=== PATIENT | female | born 1965 | race Caucasian/White ===

== ENCOUNTER → 2016-11-06 | Outpatient (CLI) | payer OTHER ==
--- NOTE | 2016-11-06 11:40 | MA ---
Screening Digital Mammogram Clinical Indications: Routine screening. Technique: Standard cephalocaudal and mediolateral oblique projections are obtained without and with (Aicha views) implant displacement. This examination was processed by the [employer] computer-aided detec tion system. Comparison: Mammograms through July 04, 2007. Breast density: Type C: The breast tissue is heterogeneously dense, which may obscure small masses. Findings: CAD was reviewed. There is a focal asymmetry in the upper outer left breast, best seen on t he MLO implant displaced view. No suspicious calcifications, masses, or areas of architectural distor tion are identified in the right breast. Right axillary asymmetry is stable to decreased in conspicui ty, likely related to overlapping fibroglandular tissue. Subpectoral saline implants have stable cont our. Heterogeneously dense breast parenchyma reduces sensitivity for noncalcified masses. Impression: Focal asymmetry in the upper outer left breast. BI-RADS 0: Needs additional imaging evalu ation. Recommendation: Ultrasound, which will be performed later the same day. Please see separate dictation for findings and recommendations. [facility] will send a result letter to the patient. Dr. Arnel Hinton reviewed the study and agrees with the findings and recommendations.
--- NOTE | 2016-11-06 11:46 | US ---
Diagnostic Left Breast Ultrasound History: Asymmetry on mammograms. Comparison: Diagnostic mammogram same day. Technique: Limited grayscale and Doppler ultrasound in the region of mammographic abnormality is perf ormed. Real-time sonography is performed by the radiologist. Findings: Ultrasound of the upper-outer left breast shows a 1.3 x 1.3 x 0.5 cm node corresponding to the mammographic asymmetry with equivocal eccentric thickening at its superior margin, which is likel y within normal limits. Impression: Mildly prominent lymph node. BI-RADS 3: Probably Benign Findings. Recommendation: Six-month follow-up ultrasound is recommended. The probably benign nature of the find ing was discussed with the patient. The option of biopsy was discussed with the patient, who elected to proceed with 6 month follow-up ultrasound. [facility] will send a result letter to the patient. Dr. Arnel Hinton reviewed the study and agrees with the findings and recommendations.
== END ==
LOC: BRMIMAGING 08:23
DX: Z12.39 Encounter for other screening for malignant neoplasm of breast (principal); R92.2 Inconclusive mammogram
CPT/HCPCS: 76641-PO

== ENCOUNTER → 2017-10-31 | Outpatient (CLI) | payer OTHER | LOC: CIMAGING 10:40 | PROVIDERS: ATTEND Physical Medicine & Rehabilitation | DX: S89.91XA Unspecified injury of right lower leg, initial encounter (principal); M25.461 Effusion, right knee | CPT/HCPCS: 73564-PO ==

== ENCOUNTER → 2017-11-11 | Outpatient (CLI) | payer OTHER | LOC: FIMAGING 08:19 | PROVIDERS: ATTEND Physical Medicine & Rehabilitation | DX: S83.241A Other tear of medial meniscus, current injury, right knee, initial encounter (principal); M22.41 Chondromalacia patellae, right knee; M76.51 Patellar tendinitis, right knee ==

== ENCOUNTER 2017-11-29 07:30 | Day surgery (SDC) | payer OTHER ==
[2017-11-29] MEDS ORDERED: ceFAZolin 2 GM/SWFI 2 GM/20 ML SYR IVP ONE (08:08)
[2017-11-29] MEDS ORDERED: LIDOCAINE 1% 2 ML INJ ID PRN (08:09)
[2017-11-29] MEDS ORDERED: LR 1,000 ML IV ONE (08:09)
[2017-11-29] MEDS ORDERED: BUPIVACAINE 0.25% 30 ML SDV ONE (08:21)
--- NOTE | 2017-11-29 09:00 | CPEKG ---
Heart Rate: 65 RR Interval: 923 P-R Interval: 124 QRSD Interval: 90 QT Interval: 404 QTC Interval: 421 P Courtland: 43 QRS Courtland: 39 T Wave Courtland: 46 EKG Severity - NORMAL ECG - EKG Impression: SINUS RHYTHM Electronically Signed By: Juan C Montague 30-Nov-2017 12:22:15
[2017-11-29] MEDS ORDERED: MIDAZOLAM 2 MG/2 ML VIAL IVP ONE (09:11)
[2017-11-29] MEDS ORDERED: PROPOFOL 200 MG/20 ML VIAL ONE (09:11)
[2017-11-29] MEDS ORDERED: LIDOCAINE 2% 5 ML SDV ONE (09:13)
[2017-11-29] MEDS ORDERED: KETAMINE 200 MG/20 ML VIAL ONE (09:14)
--- NOTE | 2017-11-29 09:15 | PDANEPAE ---
ANE Past Medical History - Cardiovascular History Hx Hypertension: No Hx Arrhythmias: Yes Hx Chest Pain: No Hx Coronary Artery / Peripheral Vascular Disease: No Hx CHF / Valvular Disease: No Hx Palpitations: No Cardiovascular History Comment: INTERMITTENT EPISODES ATRIAL FIB - OCCAS FLUTTERS MILD AND RESOLVE AFTER A FEW SECONDS - TAKES ASPIRIN - Pulmonary History Hx COPD: No Hx Asthma/Reactive Airway Disease: No Hx Recent Upper Respiratory Infection: No Hx Oxygen in Use at Home: No Hx Sleep Apnea: No Sleep Apnea Screening Result - Last Documented: Positive Pulmonary History Comment: ALPHA ONE - ANTI-TRYPSIN DEFICIENCY (DXd 2014) - Neurologic History Hx Cerebrovascular Accident: No Hx Seizures: No Hx Dementia: No - Endocrine History Hx Diabetes: No - Renal History Hx Renal Disorders: No - Liver History Hx Hepatic Disorders: No - Neurological & Psychiatric Hx Hx Neurological and Psychiatric Disorders: No - Cancer History Hx Cancer: No - Congenital Disorder History Hx Congenital Disorders: No - GI History Hx Gastrointestinal Disorders: No - Other Health History Other Health History: NEG - Chronic Pain History Chronic Pain: No - Surgical History Prior Surgeries: HYSTERECTOMY - 2008. BREAST AUGMENTATION 1992. TONSILLECTOMY ANE Review of Systems Review of Systems: - Exercise capacity METS (RN): 3 METS ANE Patient History - Allergies Allergies/Adverse Reactions: pseudoephedrine [From Sudafed] Allergy (Verified 11/28/17 14:10) "THROAT SWELLED SHUT" - Home Medications Home Medications: Aspirin 81mg (*) 11/28/17 [Last Taken 11/22/17] Herbals/Supplements -Info Only 11/28/17 [Last Taken 11/22/17] - NPO status NPO Since - Liquids (Date): 11/28/17 NPO Since - Liquids (Time): 21:00 NPO Since - Solids (Date): 11/28/17 NPO Since - Solids (Time): 19:30 - Anes Hx Hx Anesthesia Complications (with details): Urinary retention lasting days. Also had documented atrial fib under anesthesia during hysterectomy, lasting several minutes--resolved spontaneously. - Smoking Hx Smoking Status: Never smoked - Family Anes Hx Family Hx Anesthesia Complications: NEG ANE Labs/Vital Signs - Vital Signs Blood Pressure: 114/81 Heart Rate: 71 Respiratory Rate: 16 O2 Sat (%): 95 Height: 167.64 cm Weight: 122.47 kg ANE Physical Exam - Airway Neck exam: FROM Mallampati Score: Class 2 Mouth exam: normal dental/mouth exam - Pulmonary Pulmonary: no respiratory distress, no rales or rhonchi, clear to auscultation - Cardiovascular Cardiovascular: regular rate and rhythym, no murmur, rub, or gallop - ASA Status ASA Status: III ANE Anesthesia Plan Anesthesia Plan: GA w LMA
[2017-11-29] MEDS ORDERED: MIDAZOLAM 2 MG/2 ML VIAL ONE (09:16)
--- NOTE | 2017-11-29 09:16 | PDHPUP ---
History & Physical Update H&P update statement: This history and physical update is based on an assessment of the patient which was completed after admission or registration (within 24 hours), but prior to the surgery/procedure. H&P update: H&P reviewed & patient examined (no changes), no change in patient' s condition since H&P completed (no changes)
[2017-11-29] MEDS ORDERED: NALOXONE HCL 0.4 MG/ML INJ IVP PRN (09:18)
[2017-11-29] MEDS ORDERED: MEPERIDINE 25 MG/ML SYR IVP PRN (09:58)
[2017-11-29] MEDS ORDERED: PROMETHAZINE HCL 25 MG/ML INJ IVP PRN (09:58)
[2017-11-29] MEDS ORDERED: ONDANSETRON 4 MG/2 ML VIAL ONE (09:58)
[2017-11-29] MEDS ORDERED: HYDROCODONE/APAP 5/325 TAB PO PRN (09:58)
[2017-11-29] MEDS ORDERED: ACETAMINOPHEN 500 MG TAB PO PRN (09:58)
[2017-11-29] MEDS ORDERED: fentaNYL 100 MCG/2 ML INJ IVP PRN (09:58)
[2017-11-29] MEDS ORDERED: DEXAMETHASONE 4 MG/ML VIAL ONE ×2 (09:58)
[2017-11-29] MEDS ORDERED: ONDANSETRON 4 MG/2 ML VIAL IVP PRN (09:58)
[2017-11-29] MEDS ORDERED: LR 500 ML IV PRN (09:58)
[2017-11-29] MEDS ORDERED: ESMOLOL HCL 100 MG/10 ML VIAL IV ONE (09:58)
--- NOTE | 2017-11-29 10:35 | POSTANESTH ---
Post Anesthetic Evaluation Cardiovascular Status: Normal, Stable, Similar to Pre-Op Cond Respiratory Status: Normal, Stable, Similar to Pre-op Cond. Level of Consciousness/Mental Status: Can Participate in Eval, Mildly Sleepy, Arousable Pain Control: Adequate, Prn Tx Ordered Nausea/Vomiting Control: Adequate, Prn Tx Ordered Complications Possibly Related to Anesthesia: None Noted
[2017-11-29 10:37] VITALS: PULSE 68
--- NOTE | 2017-11-29 10:52 | GOP ---
[f rep st] OPERATIVE REPORT DATE OF OPERATION: 11/29/2017 SURGEON: Kalani Bejarano MD ANESTHESIA: General. PREOPERATIVE DIAGNOSIS: 1. Medial meniscus tear, right knee. 2. Patellofemoral chondromalacia, right knee. POSTOPERATIVE DIAGNOSIS: 1. Medial meniscus tear, right knee. 2. Patellofemoral chondromalacia, right knee. PROCEDURE PERFORMED: Right knee arthroscopy with partial medial meniscectomy. FINDINGS: INDICATIONS: This is a 52-year-old female who injured her knee, resulting in the above diagnosis. S he has failed nonoperative treatment and is being admitted for surgical care. We went over the risks , benefits, and limitations of the procedure preoperatively. DESCRIPTION OF PROCEDURE: After an adequate general anesthetic was obtained and IV antibiotics were administered, exam under anesthesia of the right knee revealed full range of motion. Leobardo's stabl e. There was no varus, valgus, posterior, or posterolateral laxity present. The patient's right lower extremity was placed in the leg-holding device with adequate padding. It w as prepped and draped in the usual sterile fashion. The limb was exsanguinated with the Esmarch tour niquet and elevated to 325 mmHg pressure. The standard superolateral, anteromedial, and anterolatera l arthroscopic portals were established with an 11 blade. A 4 mm, 30-degree arthroscope was introduc ed through the anterolateral portal, and a systematic examination of the knee was carried out. Supra patellar pouch, medial and lateral gutters revealed mild synovitis. The patellar articular surface r evealed some central, shaggy, grade 2-3 chondromalacia, which did require a minimal chondroplasty. T here was grade 2 softening in the central trochlea. The ACL and PCL were normal. The lateral compartment was entered. The lateral articular surfaces and the lateral meniscus were no rmal. The medial compartment was entered. The medial articular surfaces revealed grade 1 softening of the femur and tibia. There was a small radial tear at the junction of the middle third and posterior hor n of the medial meniscus, as well as a second small radial tear near the posterior root. Both of the se were unrepairable. A minimal partial meniscectomy was carried out in both areas, resecting this b ack to a stable 5-6 mm rim. The final rim was contoured and balanced with a small shaver. The 70-degree scope was introduced posteromedially and posterolaterally, confirming the anterior find ings with no further posterior pathology noted. The 30-degree scope was introduced in the superolateral portal. Patellar tracking was normal. The knee was irrigated until clear. The portals were closed using interrupted 3-0 nylon sutures. 30 cc of 0.25% Marcaine with epinephrine was injected intra-articularly. Sterile dressings were applied, followed by an Gabo wrap. Tourniquet was deflated after 31 minutes of tourniquet time. There were no complications. The patient tolerated the procedure well and returned to the recovery r oom in stable condition. /[id number]/MODL
[2017-11-29] MEDS ORDERED: fentaNYL 100 MCG/2 ML INJ ONE (10:56)
[2017-11-29] MEDS ORDERED: HYDROCODONE/APAP 5/325 TAB ONE (10:56)
[2017-11-29 11:58] VITALS: BP 111/82; RESP 14; TEMP 97.7; O2SAT 94
== END 2017-11-29 12:11 | disposition home or self-care (01) ==
LOC: FSGY 07:30
PROVIDERS: ATTEND Orthopaedic Surgery Sports Medicine
PROC: 0SBC4ZZ Excision of Right Knee Joint, Percutaneous Endoscopic Approach (ICD-10-PCS; principal; 2017-11-29 09:00)
DX: S83.241A Other tear of medial meniscus, current injury, right knee, initial encounter (principal); M22.41 Chondromalacia patellae, right knee; W00.0XXA Fall on same level due to ice and snow, initial encounter; Y99.0 Civilian activity done for income or pay; Y92.481 Parking lot as the place of occurrence of the external cause; Y93.01 Activity, walking, marching and hiking; I48.91 Unspecified atrial fibrillation; Z79.82 Long term (current) use of aspirin
CPT/HCPCS: J0171; J0690; J1100; J2250; J2405; J2704; J3010

== ENCOUNTER → 2017-12-05 | Outpatient (CLI) | payer OTHER | LOC: BRMIMAGING 13:10 | PROVIDERS: ATTEND Orthopaedic Surgery Sports Medicine | DX: I82.441 Acute embolism and thrombosis of right tibial vein (principal); I82.890 Acute embolism and thrombosis of other specified veins | CPT/HCPCS: 93971-PO ==

== ENCOUNTER → 2017-12-20 | Outpatient (CLI) | payer OTHER, MEDICAID | LOC: CIMAGING 09:02 | PROVIDERS: ATTEND Internal Medicine Pulmonary Disease | DX: Z09 Encounter for follow-up examination after completed treatment for conditions other than malignant neoplasm (principal); R91.1 Solitary pulmonary nodule; R93.8 Abnormal findings on diagnostic imaging of other specified body structures | CPT/HCPCS: 71250-PO ==

== ENCOUNTER → 2017-12-21 | Outpatient (CLI) | payer OTHER, MEDICAID | LOC: BRMIMAGING 12:10 | PROVIDERS: ATTEND Nurse Practitioner Family | DX: K76.89 Other specified diseases of liver (principal); K76.0 Fatty (change of) liver, not elsewhere classified | CPT/HCPCS: 76705-PO ==

== ENCOUNTER → 2018-01-09 | Outpatient (CLI) | payer OTHER | LOC: BRMIMAGING 08:08 | PROVIDERS: ATTEND Nurse Practitioner Family | DX: Z12.31 Encounter for screening mammogram for malignant neoplasm of breast (principal) ==